=== PATIENT | female | born 1965 | race Two or more races ===

== ENCOUNTER 2018-06-16 09:11 | Outpatient (CLI) | payer OTHER ==
[~2018-06-16 09:11] MED LIST: ASA325 MG; B & O SUPP1 SUPP.REC; CALAN80 MG; LEXAPRO5 MG; LIPITOR20 MG; PLAVIX75 MG
[2018-06-19] MEDS ORDERED: CALAN PO (11:41)
[2018-06-19] MEDS ORDERED: HORIZANT300 MG PO (11:42)
[2018-06-19] MEDS ORDERED: TOPAM PO (11:42)
[2018-06-19] MEDS ORDERED: PROTONIX40 M1 PO (11:42)
== END 2018-06-16 09:22 | disposition home or self-care (01) ==
LOC: RAD 501 09:11
DX: I10 Essential (primary) hypertension (principal)

== ENCOUNTER 2018-06-26 08:52 | Day surgery (SDC) | payer OTHER ==
[~2018-06-26 08:52] MED LIST changes: +CALAN PO; +HORIZANT300 MG PO; +PROTONIX40 M1 PO; +TOPAM PO
[2018-06-26] MEDS ORDERED: EC-NAPROSYN375 MG PO (13:37)
== END 2018-06-26 18:19 | disposition home or self-care (01) ==
LOC: CIR.AMB 08:52
DX: N92.1 Excessive and frequent menstruation with irregular cycle (principal)

== ENCOUNTER 2019-04-19 13:13 | Outpatient (CLI) | payer OTHER ==
[~2019-04-19 13:13] MED LIST changes: +EC-NAPROSYN375 MG PO
== END 2019-04-19 13:15 | disposition home or self-care (01) ==
LOC: MAMO-SONO 13:13
DX: Z12.31 Encounter for screening mammogram for malignant neoplasm of breast (principal); Z87.898 Personal history of other specified conditions; N60.11 Diffuse cystic mastopathy of right breast; N60.12 Diffuse cystic mastopathy of left breast

== ENCOUNTER 2019-06-14 06:00 | Outpatient (CLI) | payer OTHER | END 2019-06-14 06:05 | disposition home or self-care (01) | LOC: LAB 06:00 → ADM 07:45 → EDSTATUS 06-19 07:45 → CIR.AMB 06-19 07:45 | DX: G56.02 Carpal tunnel syndrome, left upper limb (principal); Z01.810 Encounter for preprocedural cardiovascular examination; E11.9 Type 2 diabetes mellitus without complications; E78.00 Pure hypercholesterolemia, unspecified; E78.3 Hyperchylomicronemia; D66 Hereditary factor VIII deficiency; D65 Disseminated intravascular coagulation [defibrination syndrome]; N39.0 Urinary tract infection, site not specified; I10 Essential (primary) hypertension ==

== ENCOUNTER 2021-05-28 10:37 | Outpatient (CLI) | payer OTHER | END 2021-05-28 10:43 | disposition home or self-care (01) | LOC: RAD 10:37 | PROVIDERS: ATTEND Physical Medicine & Rehabilitation | DX: M25.562 Pain in left knee (principal) ==

== ENCOUNTER 2022-08-03 06:00 | Day surgery (SDC) | payer OTHER ==
[~2022-08-03] VITALS: Ht 160 cm; Wt 71.2 kg
[~2022-08-03 06:00] MED LIST changes: +TOPROL XL25 M1 PO
== END 2022-08-03 11:45 | disposition home or self-care (01) ==
LOC: CIR.AMB 06:00
PROVIDERS: ATTEND Orthopaedic Surgery Hand Surgery
DX: G56.02 Carpal tunnel syndrome, left upper limb (principal); Z20.822 Contact with and (suspected) exposure to COVID-19; E11.9 Type 2 diabetes mellitus without complications; E78.00 Pure hypercholesterolemia, unspecified; E78.3 Hyperchylomicronemia; I10 Essential (primary) hypertension

== ENCOUNTER 2024-02-22 07:55 | Emergency (ER) | payer OTHER ==
[~2024-02-22] VITALS: Ht 162.6 cm; Wt 73.5 kg
[~2024-02-22 07:55] MED LIST changes: +ASPIR-TRIN325 MG; +LEXAPRO20 MG; +LIPIODOL10 ML; +PEPCID40 MG PO; +PROTONIX40 MG; +PROTONIX40 MG PO; +TOPAMAX50 MG; +ZANTAC300 MG PO; +ZOFRAN4 MG PO; +ZOFRAN8 MG PO
[2024-02-22] MEDS ORDERED: FENOFIBRATE50 MG (08:13)
[2024-02-22] MEDS ORDERED: ONDANSETRON HCL 2 MG/ML VIAL IV STA (08:54)
[2024-02-22 10:38] VITALS: BP 140/72; O2SAT 100
== END 2024-02-22 10:39 | disposition home or self-care (01) ==
LOC: ER 07:57
DX: R04.0 Epistaxis (principal)

== ENCOUNTER 2024-02-22 11:01 | Emergency (ER) | payer OTHER ==
[~2024-02-22] VITALS: Ht 157.5 cm; Wt 79.4 kg
[~2024-02-22 11:01] MED LIST changes: +FENOFIBRATE50 MG
[2024-02-22 11:58] VITALS: BP 80/64; O2SAT 99
[2024-02-22 12:55] LABS: HEMATOCRIT 39.2 % (36.0-45.00); HEMOGLOBIN 13.2 g/dL (12.0-15.00); MEAN CORPUSCULAR HEMOGLOBIN 31.3 pg (27.00-32.0); MEAN CORPUSCULAR HGB CONC 33.6 g/dl (32.0-36.0); PLATELET COUNT 301 K/uL (150-450); RED BLOOD COUNT 4.22 M/uL (4.00-6.00)
[2024-02-22 13:19] LABS: CALCIUM 9.7 mg/dL (8.5-10.1); CREATININE SERUM 1.2 mg/dL (0.55-1.02); GFR 46.47; POTASSIUM 4.62 mEq/L (3.5-5.1)
[2024-02-22] MEDS ORDERED: 0.9 % SODIUM CHLORIDE 1,000 ML IV STA (13:53)
[2024-02-22] MEDS ORDERED: ACETAMINOPHEN 325 MG TABLET PO ONE (17:30)
[2024-02-22] MEDS ORDERED: CETIRIZINE HCL 5MG/5ML BLIST.PACK PO ONE (17:30)
== END 2024-02-22 17:35 | disposition home or self-care (01) ==
LOC: EDBD 11:03 → ER 11:03
PROVIDERS: General Practice
DX: R04.0 Epistaxis (principal)